=== PATIENT | female | born 1995 | race Caucasian/White ===

== ENCOUNTER → 2018-09-12 | Outpatient (REF) | payer BC | LOC: ZZSENDIN 16:34 | PROVIDERS: ATTEND Physician Assistant | DX: N39.0 Urinary tract infection, site not specified (principal); B96.89 Other specified bacterial agents as the cause of diseases classified elsewhere | CPT/HCPCS: 87077; 87088; 87186 ==

== ENCOUNTER 2019-03-03 20:32 | Emergency (ER) | payer BC ==
[2019-03-03] MEDS ORDERED: BUPR-136 (20:38)
[2019-03-03] MEDS ORDERED: cefTRIAXone(*) 1 GM VIAL 1 GM in NS(*) 0.9% 100 ML MINI-BAG 100 ML IVPB ONE (21:15)
[2019-03-03] MEDS ORDERED: NS(*) 0.9% 1000 ML BAG 1,000 ML IV ONE (21:15)
[2019-03-03] MEDS ORDERED: AZITHROMYCIN(*) 500 MG 500 MG in NS(*) 0.9% 250 ML BAG 250 ML IVPB ONE (21:15)
[2019-03-03 21:17] LABS: PLATELET COUNT, AUTOMATED 448 K/uL (150-450)
[2019-03-03] MEDS ORDERED: methylPREDNIS SUCC 125 MG/2ML IVP ONE (21:25)
[2019-03-03] MEDS ORDERED: ALBUTEROL/IPRATROPIUM 3 ML NEB NEB ONE (21:25)
--- NOTE | 2019-03-03 21:56 | ER Report ---
History and Physical Time Seen By : 20:46 Hx. of Stated Complaint: PT FROM URGENT CARE- XRAY AND CT COMPLETED. PT TO ER TO BE TX FOR PNEUMONIA, INCREASED OXYGEN DEMAND HPI/ROS CHIEF COMPLAINT: Pneumonia, hypoxia HISTORY OF PRESENT ILLNESS: This is a 24-year-old female. She was seen at urgent care earlier today. She had sudden onset today of cough and shortness of breath. Pulse in the 120s. Hypoxia at 72% on room air on arrival at urgent care. Workup there included an x-ray of the chest which did not show any abnormalities. D- dimer was elevated. Normal white count. Was sent to CT scan for a CT angiogram and did not show pulmonary him was in the does show pulmonary consolidation mainly in the bases and a little bit throughout the lungs consistent with likely pneumonia. The patient remains hypoxic, and urgent care is not able to help at this time get treatment arrange for oxygen, so recommended coming to the ER for further evaluation and management. The patient is feeling a little bit better with the oxygen however currently requiring about 6 L to keep her sats elevated. We are going to do further treatment with IV antibiotics, breathing treatments, steroids to see if we can improve this. REVIEW OF SYSTEMS: Cardiovascular: No chest pain. Respiratory: As above. Gastrointestinal: No abdominal pain. No nausea or vomiting. Genitourinary: No dysuria or urinary problems. Musculoskeletal: No musculoskeletal pain. Skin: No rashes. Allergies: Coded Allergies: No Known Drug Allergies (Unverified , 03/03/19) Home Meds Active Scripts Albuterol Sulfate 0.083% (ALBUTEROL SULFATE 0.083%) 2.5 Mg/3 Ml Vial.neb, 2.5 MG INH Q4H PRN for WHEEZING, #1 BOX 0 Refills Prov:COLT BRANDON MD 03/03/19 Azithromycin (ZITHROMAX) 250 Mg Tablet, 1 TAB PO QDAY, #4 TAB 0 Refills Prov:COLT BRANDON MD 03/03/19 Amoxicillin/Pot Clav 875-125 Mg Tab (AUGMENTIN 875-125 TABLET) 1 Each Tablet, 1 TAB PO Q12H, #20 TAB 0 Refills Prov:COLT BRANDON MD 03/03/19 Prednisone (PREDNISONE) 20 Mg Tablet, 60 MG PO QDAY, #12 TAB 0 Refills Prov:COLT BRANDON MD 03/03/19 Reported Medications Bupropion Hcl (BUPROPION HCL SR) 150 Mg Tablet.er, QHS 03/03/19 Constitutional Vital Sign - Last 24 Hours 03/03/19 03/03/19 03/03/19 03/03/19 20:32 20:32 20:45 21:00 Temp 99.2 Pulse 127 127 106 Resp 20 B/P (MAP) 137/92 Pulse Ox 65 65 91 O2 Delivery Room Air Room Air Nasal Cannula O2 Flow Rate 6.0 6 03/03/19 03/03/19 03/03/19 03/03/19 21:15 21:25 21:25 21:30 Pulse 105 102 104 Resp 20 B/P (MAP) 105/70 (82) Pulse Ox 93 90 99 O2 Delivery Nasal Cannula O2 Flow Rate 5.0 03/03/19 03/03/19 03/03/19 03/03/19 21:31 21:45 22:00 22:15 Pulse 104 104 109 110 Resp 20 B/P (MAP) 108/82 (91) Pulse Ox 90 90 92 03/03/19 03/03/19 03/03/19 03/03/19 22:30 22:45 23:00 23:15 Pulse 105 110 112 110 B/P (MAP) 122/87 (99) 123/80 (94) Pulse Ox 93 89 87 88 Medical Decision Making Data Points Result Diagram: 03/03/19204303/03/192043 Laboratory Hematology Test 03/03/19 20:44 Red Blood Count 4.98 M/uL (4.17-5.56) Mean Corpuscular Volume 72.7 fL (80.0-96.0) Mean Corpuscular Hemoglobin 23.5 pg (26.0-33.0) Mean Corpuscular Hemoglobin Concent 32.3 g/dL (32.0-36.0) Red Cell Distribution Width 16.7 % (11.5-14.5) Mean Platelet Volume 8.4 fL (7.2-11.1) Neutrophils (%) (Auto) 65.5 % (39.4-72.5) Lymphocytes (%) (Auto) 22.4 % (17.6-49.6) Monocytes (%) (Auto) 10.2 % (4.1-12.4) Eosinophils (%) (Auto) 1.2 % (0.4-6.7) Basophils (%) (Auto) 0.7 % (0.3-1.4) Nucleated RBC Relative Count (auto) 0.0 /100WBC Neutrophils # (Auto) 6.5 K/uL (2.0-7.4) Lymphocytes # (Auto) 2.2 K/uL (1.3-3.6) Monocytes # (Auto) 1.0 K/uL (0.3-1.0) Eosinophils # (Auto) 0.1 K/uL (0.0-0.5) Basophils # (Auto) 0.1 K/uL (0.0-0.1) Nucleated RBC Absolute Count (auto) 0.00 K/uL Sodium Level 139 mmol/L (137-145) Potassium Level 3.4 mmol/L (3.5-5.0) Chloride Level 104 mmol/L (98-107) Carbon Dioxide Level 25 mmol/L (22-31) Blood Urea Nitrogen 10 mg/dl (7-18) Creatinine 0.80 mg/dl (0.52-1.04) Glomerular Filtration Rate Calc > 60.0 Random Glucose 75 mg/dl (75-110) Calcium Level 8.9 mg/dl (8.4-10.2) Total Bilirubin 0.2 mg/dl (0.2-1.3) Aspartate Amino Transf (AST/SGOT) 26 U/L (0-35) Alanine Aminotransferase (ALT/SGPT) 35 U/L (0-56) Alkaline Phosphatase 81 U/L (0-126) Total Protein 7.9 g/dl (6.3-8.2) Albumin 4.0 g/dl (3.5-5.0) Chemistry Test 03/03/19 20:44 White Blood Count 9.9 k/uL (4.5-11.0) Red Blood Count 4.98 M/uL (4.17-5.56) Hemoglobin 11.7 g/dL (12.0-16.0) Hematocrit 36.2 % (34.0-47.0) Mean Corpuscular Volume 72.7 fL (80.0-96.0) Mean Corpuscular Hemoglobin 23.5 pg (26.0-33.0) Mean Corpuscular Hemoglobin Concent 32.3 g/dL (32.0-36.0) Red Cell Distribution Width 16.7 % (11.5-14.5) Platelet Count 448 K/uL (150-450) Mean Platelet Volume 8.4 fL (7.2-11.1) Neutrophils (%) (Auto) 65.5 % (39.4-72.5) Lymphocytes (%) (Auto) 22.4 % (17.6-49.6) Monocytes (%) (Auto) 10.2 % (4.1-12.4) Eosinophils (%) (Auto) 1.2 % (0.4-6.7) Basophils (%) (Auto) 0.7 % (0.3-1.4) Nucleated RBC Relative Count (auto) 0.0 /100WBC Neutrophils # (Auto) 6.5 K/uL (2.0-7.4) Lymphocytes # (Auto) 2.2 K/uL (1.3-3.6) Monocytes # (Auto) 1.0 K/uL (0.3-1.0) Eosinophils # (Auto) 0.1 K/uL (0.0-0.5) Basophils # (Auto) 0.1 K/uL (0.0-0.1) Nucleated RBC Absolute Count (auto) 0.00 K/uL Glomerular Filtration Rate Calc > 60.0 Calcium Level 8.9 mg/dl (8.4-10.2) Total Bilirubin 0.2 mg/dl (0.2-1.3) Aspartate Amino Transf (AST/SGOT) 26 U/L (0-35) Alanine Aminotransferase (ALT/SGPT) 35 U/L (0-56) Alkaline Phosphatase 81 U/L (0-126) Total Protein 7.9 g/dl (6.3-8.2) Albumin 4.0 g/dl (3.5-5.0) EKG/Imaging Imaging I reviewed the CT scan images obtained earlier today. ED Course/Re-evaluation Clinical Indication for ER IV: Hydration, IV Access ED Course Blood cultures obtained. Gave the patient some fluids. Titrated her oxygen and were able to get it down to 3 L by nasal cannula. Azithromycin 500 mg IV was given. Rocephin 1 g IV was given. Also gave Solu-Medrol 125 mg IV. DuoNeb nebulizer treatment. She felt much better after all of this. She appears to be safe to go home at this time. I had a conversation in this regard with her and her parents. She is staying with her parents here in town. She is a student at the [employer]. Her primary care provider is . At this point she is doing much better and feels comfortable going home on home oxygen with oral antibiotic therapy and close follow-up with her primary care provider. Decision to Disposition Date: March 03, 2019 Decision to Disposition Time: 23:00 Depart Departure Latest Vital Signs Vital Signs Date Time Temp Pulse Resp B/P (MAP) Pulse Ox O2 Delivery O2 Flow Rate FiO2 03/03/19 23:15 110 88 03/03/19 23:00 123/80 (94) 03/03/19 21:31 20 03/03/19 21:25 Nasal Cannula 5.0 03/03/19 20:32 99.2 Impression: Primary Impression: Pneumonia Additional Impression: Hypoxia Condition: Improved Disposition: HOME OR SELF-CARE Referrals: LORETTA THOMPSON MD (PCP) New Scripts Albuterol Sulfate 0.083% (ALBUTEROL SULFATE 0.083%) 2.5 Mg/3 Ml Vial.neb 2.5 MG INH Q4H PRN for WHEEZING, #1 BOX 0 Refills Prov: COLT BRANDON MD 03/03/19 Azithromycin (ZITHROMAX) 250 Mg Tablet 1 TAB PO QDAY, #4 TAB 0 Refills Prov: COLT BRANDON MD 03/03/19 Amoxicillin/Pot Clav 875-125 Mg Tab (AUGMENTIN 875-125 TABLET) 1 Each Tablet 1 TAB PO Q12H, #20 TAB 0 Refills Prov: COLT BRANDON MD 03/03/19 Prednisone (PREDNISONE) 20 Mg Tablet 60 MG PO QDAY, #12 TAB 0 Refills Prov: COLT BRANDON MD 03/03/19 Departure Forms: Home Oxygen, Nebulizer RX Durable Medical Equipment- Oxygen: Oxygen Concentrator, Portable Oxygen Gas Reason for Use/Diagnosis: Pneumonia, hypoxia Start Date of the Order: March 03, 2019 Dosage or Concentration (if applicable) - LPM: 3 Route of Administration (if applicable): Nasal Cannula Frequency of Use: Continuous Duration Home O2 Required: 6 Duration Units: Weeks Room Air Oxygen Saturation: 65 ER Prescribing Physician's Name: Colt Brandon NPI Numbers for Local ER MDs: [place] [id number] Patient Instructions: Bacterial Pneumonia (ED) Additional Instructions: You have pneumonia. Take the following two antibiotics: Azithromycin 250mg once a day for 4 days. Augmentin 875/125 twice a day for 10 days. Take the steroid Prednisone 20mg tablets, 3 tablets once a day for 4 days. Use Albuterol nebulizers, 1 every 3-4 hours as needed for shortness of breath. Oxygen at 3 liters nasal canula continuously. Call and see Dr. Thompson this week for close follow-up. Problem Qualifiers Primary Impression: Pneumonia Pneumonia type: due to unspecified organism Laterality: bilateral Lung location: lower lobe of lung Qualified Codes: J18.1 - Lobar pneumonia, unspecified organism COLT BRANDON MD March 03, 2019 21:56
[2019-03-03 23:00] VITALS: BP 123/80
[2019-03-03] MEDS ORDERED: ALBU2.5V36 INH (23:04)
[2019-03-03] MEDS ORDERED: PRED20TA6 PO (23:04)
[2019-03-03] MEDS ORDERED: AZIT-1 PO (23:04)
[2019-03-03] MEDS ORDERED: AMOX-559 PO (23:04)
[2019-03-03] MEDS ORDERED: ALBUTEROL 2.5 MG/3 ML NEB NEB ONE (23:10)
[2019-03-03] MEDS ORDERED: predniSONE 20 MG TAB PO ONE (23:10)
== END 2019-03-03 23:50 | disposition home or self-care (01) ==
LOC: ER 20:54
DX: J18.1 Lobar pneumonia, unspecified organism (principal)
CPT/HCPCS: 85025; 87040; 94640; 96365; 96366; 96375; 99284; J0456; J0696; J2930; J7030; J7050; J7512; J7613; J7620; 82040; 82247; 82310; 82374; 82435; 82565; 82947; 84075; 84132; 84155; 84295; 84450; 84460; 84520

== ENCOUNTER → 2019-03-03 | Outpatient (CLI) | payer BC ==
[~2019-03-03] MED LIST: ALBU2.5V36 INH; AMOX-559 PO; AZIT-1 PO; BUPR-136; PRED20TA6 PO
--- NOTE | 2019-03-03 20:29 | RADIOLOGY IMAGING REPORT ---
FACILITY: [facility] [place] PATIENT NAME: Kinza Mejia : 1995 MR: [id number] V: [id number] EXAM DATE: ORDERING PHYSICIAN: LORETTA ZAFAR TECHNOLOGIST: Location: [facility] [place] Patient: Kinza Mejia : 1995 Visit/Account:[id number] Date of Sevice: 03/03/2019 EXAMINATION: CTA of the chest with IV contrast HISTORY: Shortness of breath. Cough. TECHNIQUE: Pulmonary embolus protocol - Thin axial CT images of the chest were obtained with IV con trast during maximal pulmonary arterial opacification. Reconstruction of the source data includes mul tiplanar 2D coronal and sagittal reconstructed images, and 3D coronal and sagittal MIP images. Repres entative images have been stored on PACS. One of the following dose optimization techniques was utilized in the performance of this exam: Autom ated exposure control; adjustment of the mA and/or kV according to the patient's size; or use of an i terative reconstruction technique. Specific details can be referenced in the facility's radiology C T exam operational policy. Contrast: 75 mL of IV Isovue-370. COMPARISON: None. FINDINGS: Pulmonary arteries: The pulmonary arteries are moderately well opacified, without suspicious filling defect. Heart, aorta, and great vessels: Negative. Lungs and pleura: There are extensive tree-in-bud type micronodular opacities present throughout bot h lungs, with greatest involvement in the lower lobes and additional milder involvement in the upper lobes. There is mild diffuse bronchial wall thickening. There is a small amount of peripheral consoli dative opacity in the left lower lobe anteriorly. The central airways are patent. No pleural effusion . Mediastinum and holly: Mildly enlarged bilateral hilar lymph nodes are nonspecific and may be reactiv e. Hilar lymph nodes measure up to 1.2 x 1.7 cm on the left (series 6, image 141) and 1.1 x 1.4 cm on the right (image 136). No enlarged mediastinal lymph nodes. Visualized upper abdomen: Unremarkable. Chest wall: Negative. Bones: Negative. IMPRESSION: 1. No evidence of pulmonary embolism. 2. There are diffuse tree-in-bud type micronodular opacities throughout both lungs, predominantly inv olving the lower lobes with lesser involvement throughout the upper lobes. Appearance is most compati ble with a diffuse infectious bronchiolitis, which could be bacterial or viral. Minimal peripheral co nsolidation in the left lower lobe may represent associated bronchopneumonia. 2. Mildly enlarged bilateral hilar lymph nodes are nonspecific but may be reactive. Findings were discussed with LORETTA ZAFAR at 03/03/2019 8:25 PM. Report Dictated By: Gustavo Crenshaw MD at 03/03/2019 8:02 PM Report E-Signed By: Gustavo Crenshaw MD at 03/03/2019 8:25 PM [id number]
== END ==
LOC: CT 18:44
PROVIDERS: ATTEND Nurse Practitioner Family
DX: R09.02 Hypoxemia (principal)
CPT/HCPCS: 71275; Q9967

== ENCOUNTER → 2019-03-03 | Outpatient (REF) | payer BC ==
[2019-03-03 17:56] LABS: PLATELET COUNT, AUTOMATED 453 K/uL (150-450)
== END ==
PROVIDERS: ATTEND Nurse Practitioner Family
DX: R09.02 Hypoxemia (principal)
CPT/HCPCS: 82040; 82247; 82310; 82374; 82435; 82565; 82947; 84075; 84132; 84155; 84295; 84450; 84460; 84484; 84520; 85025; 85379